=== PATIENT | male | born 1990 | race Caucasian/White ===

== ENCOUNTER 2016-05-01 15:08 | Emergency (ER) | payer OTHER ==
[~2016-05-01] VITALS: Ht 170.2 cm; Wt 80.0 kg
[2016-05-01] MEDS ORDERED: KETOROLAC 60MG/2ML VIAL IM ONE (17:00)
[2016-05-01] MEDS ORDERED: CYCLOBENZAPRINE 10MG TABLET PO ONE (17:00)
[2016-05-01 18:35] VITALS: BP 126/70
== END 2016-05-01 18:10 | disposition home or self-care (01) ==
LOC: ER 15:46
DX: S10.93XA Contusion of unspecified part of neck, initial encounter (principal); M54.5 Low back pain; R51 Headache; Z87.828 Personal history of other (healed) physical injury and trauma; V43.62XA Car passenger injured in collision with other type car in traffic accident, initial encounter; Y92.488 Other paved roadways as the place of occurrence of the external cause
CPT/HCPCS: 99283; J1885